=== PATIENT | female | born 1960 | race Hispanic/Latino ===

== ENCOUNTER 2020-06-02 18:11 | Inpatient (IN) | payer OTHER ==
[2020-06-02] MEDS ORDERED: Sodium Chloride 0.9% 1,000 ML IV SCH (19:54)
[2020-06-02] MEDS ORDERED: Dextrose 5% in Water 1,000 ML IV PRN (19:54)
[2020-06-02] MEDS ORDERED: Dextrose 50% Abboject 50 ML SYRINGE SLOW IVP PRN (19:54)
[2020-06-02] MEDS ORDERED: Ondansetron ODT 4 MG TAB PO PRN (19:54)
[2020-06-02] MEDS ORDERED: niCARdipine 25 MG in Sodium Chloride 0.9% 250 ML 250 ML IVPB SCH (19:54)
[2020-06-02] MEDS ORDERED: Promethazine HCl 25 MG/ML VIAL IM PRN (19:54)
[2020-06-02] MEDS: Famotidine 20 MG TAB PO SCH (20:00)
[2020-06-02] MEDS ORDERED: niCARdipine 25 MG in Sodium Chloride 0.9% 250 ML 240 ML IVPB SCH (20:00)
[2020-06-02] MEDS: Ondansetron PF 4 MG/2 ML Vial IVP PRN (20:40)
[2020-06-02] MEDS: Acetaminophen 500 MG TAB PO SCH (20:43)
[2020-06-02] MEDS: traMADol HCl 50 MG TAB PO PRN (20:45)
[2020-06-02] MEDS: hydrALAZINE 20 MG/ML VIAL SLOW IVP PRN (23:25)
[2020-06-03] MEDS: traMADol HCl 50 MG TAB PO PRN ×3 (03:27→19:41)
[2020-06-03] MEDS: Acetaminophen 500 MG TAB PO SCH ×4 (06:05→23:56)
[2020-06-03 06:14] VITALS: BMI 36.3
[2020-06-03 06:42] LABS: #Lymphocytes 1.1 thou/uL (1.20-3.40); #Monocytes 0.3 thou/uL (0.11-0.59); #Neutrophils 9.6 thou/uL (1.40-6.50); %Basophils 0.1 % (0.0-1.0); %Eosinophils 0.1 % (0.0-10.0); %Lymphocytes 9.7 % (21.0-51.0); %Monocytes 2.3 % (0.0-10.0); %Neutrophils 87.8 % (42.0-75.0); Hemoglobin 12.9 g/dL (12.0-16.0); Mean Corpuscular HGB CONC 34.3 g/dL (32.0-36.0); Mean Corpuscular Hemoglobin 30.8 pg (27.0-31.0); Mean Corpuscular Volume 89.9 fL (78.0-98.0); Mean Platelet Volume 9.2 fL (7.4-10.4); Platelet Count 198 thou/uL (130-400); RBC Distribution Width 11.3 % (11.5-14.5); Red Blood Cell (RBC) Count 4.17 mill/uL (4.20-5.40); White Blood Cell (WBC) Count 10.9 thou/uL (4.8-10.8)
[2020-06-03 06:58] LABS: Anion Gap 12 mmol/L (10-20); BUN (Urea Nitrogen) 13 mg/dL (9.8-20.1); Calc. Creatinine Clearance 98 mL/min (70-130); Carbon Dioxide 21 mmol/L (22-29); Chloride 107 mmol/L (98-107); Glucose 122 mg/dL (70-105); Potassium 3.9 mmol/L (3.5-5.1); Sodium 136 mmol/L (136-145)
[2020-06-03] MEDS: Famotidine 20 MG TAB PO SCH ×2 (08:41→19:41)
[2020-06-03] MEDS: hydrALAZINE 20 MG/ML VIAL SLOW IVP PRN ×3 (10:34→21:45)
[2020-06-03] MEDS: Ondansetron PF 4 MG/2 ML Vial IVP PRN (11:36)
[2020-06-04] MEDS: Ondansetron PF 4 MG/2 ML Vial IVP PRN ×2 (01:48→08:56)
[2020-06-04] MEDS: Acetaminophen 500 MG TAB PO SCH ×2 (05:37→13:53)
[2020-06-04] MEDS: Famotidine 20 MG TAB PO SCH (08:39)
[2020-06-04] MEDS: traMADol HCl 50 MG TAB PO PRN (08:48)
[2020-06-04 12:37] VITALS: BP 160/80; TEMP 98
== END 2020-06-04 15:05 | disposition home or self-care (01) | DRG 86 ==
LOC: CCU 18:54 → SURG A 06-03 15:42
PROVIDERS: ADMIT Surgery; ATTEND Surgery
DX: S06.6X0A Traumatic subarachnoid hemorrhage without loss of consciousness, initial encounter (principal); S22.41XA Multiple fractures of ribs, right side, initial encounter for closed fracture; I10 Essential (primary) hypertension; R40.2413 Glasgow coma scale score 13-15, at hospital admission; F17.210 Nicotine dependence, cigarettes, uncomplicated; Z90.49 Acquired absence of other specified parts of digestive tract; V43.02XA Car driver injured in collision with other type car in nontraffic accident, initial encounter; Z90.710 Acquired absence of both cervix and uterus
CPT/HCPCS: 36415; 70450; 80048; 85025; J0360; J2405; J7050; Q0162

== ENCOUNTER 2020-07-19 08:08 | Outpatient (CLI) | payer OTHER | END 2020-07-19 08:09 | disposition home or self-care (01) | LOC: BICCT 08:08 | PROVIDERS: ATTEND Physician Assistant | DX: I60.9 Nontraumatic subarachnoid hemorrhage, unspecified (principal) | CPT/HCPCS: 70450 ==

== ENCOUNTER 2022-09-03 05:43 | Day surgery (SDC) | payer OTHER ==
[2022-09-01 08:58] VITALS: BMI 29.7
[2022-09-03] MEDS ORDERED: fentaNYL PF 100 MCG/2 ML SYRINGE ONE (06:24)
[2022-09-03] MEDS ORDERED: Midazolam HCl 2 mg/2 ml Vial ONE ×2 (06:24→06:45)
[2022-09-03] MEDS ORDERED: Lidocaine 2% 6 ML (Jelly) SYR ONE (06:24)
[2022-09-03] MEDS ORDERED: Lidocaine 1% (PF) 30 ML VIAL ONE (06:25)
[2022-09-03] MEDS ORDERED: EPINEPHrine 1 MG/ML AMP ONE (06:25)
[2022-09-03] MEDS ORDERED: Dexamethasone 20 MG/5 ML VIAL ONE (06:34)
[2022-09-03] MEDS ORDERED: PROPOFOL 200 MG/20 ML VIAL ONE (06:34)
[2022-09-03] MEDS ORDERED: Rocuronium Bromide 10 MG/ML (10ML VIAL) ONE (06:34)
[2022-09-03] MEDS ORDERED: Ketorolac Tromethamine 30 MG/ML VIAL ONE (06:34)
[2022-09-03] MEDS ORDERED: Lidocaine 1% PF 5 ML VIAL ONE (06:34)
[2022-09-03] MEDS ORDERED: Ondansetron PF 4 MG/2 ML Vial ONE (06:34)
[2022-09-03] MEDS ORDERED: Ropivacaine 0.5% HCl/PF (150 MG/30 ML VIAL) ONE (06:45)
[2022-09-03] MEDS ORDERED: fentaNYL 50 mcg/mL 1 mL Vial ONE (06:45)
[2022-09-03] MEDS ORDERED: Sodium Chloride 0.9% 100 ML ONE (07:03)
[2022-09-03] MEDS ORDERED: CEFAZOLIN 2 GM VIAL ONE (07:03)
[2022-09-03] MEDS ORDERED: Promethazine HCl 25 MG/ML VIAL IM PRN (08:00)
[2022-09-03] MEDS ORDERED: Ropivacaine 0.2% 550 ML 550 ML NERVE BLCK SCH (08:00)
[2022-09-03] MEDS ORDERED: Ondansetron PF 4 MG/2 ML Vial IVP PRN (08:00)
[2022-09-03] MEDS ORDERED: traMADol HCl 50 MG TAB PO PRN ×2 (08:00)
[2022-09-03] MEDS ORDERED: Zolpidem Tartrate 5 MG TAB PO PRN (08:00)
[2022-09-03] MEDS ORDERED: HYDROcodone/Acetaminophen 5/325 mg Tablet PO PRN ×2 (08:00)
[2022-09-03] MEDS ORDERED: Ropivacaine 0.2% HCl/PF 20 ML ONE (08:05)
[2022-09-03] MEDS ORDERED: SUGAMMADEX SODIUM 200 MG/2 ML VIAL ONE (08:46)
[2022-09-03] MEDS ORDERED: Ondansetron HCl/PF 4 MG/2 ML Vial IVP PRN (08:51)
== END 2022-09-03 12:10 | disposition home or self-care (01) ==
LOC: SDC 05:43
PROVIDERS: ATTEND Orthopaedic Surgery
PROC: 0LB14ZZ Excision of Right Shoulder Tendon, Percutaneous Endoscopic Approach (ICD-10-PCS; principal; 2022-09-03)
DX: S46.011A Strain of muscle(s) and tendon(s) of the rotator cuff of right shoulder, initial encounter (principal); S43.431A Superior glenoid labrum lesion of right shoulder, initial encounter; M67.813 Other specified disorders of tendon, right shoulder; I10 Essential (primary) hypertension; X58.XXXA Exposure to other specified factors, initial encounter
CPT/HCPCS: A4306; C1713; J0171; J1100; J1885; J2001; J2250; J2405; J2704; J2795; J3010; J3490